=== PATIENT | male | born 1990 | race Caucasian/White ===

== ENCOUNTER 2022-03-26 01:38 | Emergency (ER) | payer OTHER ==
[~2022-03-26] VITALS: Ht 177.8 cm; Wt 65.8 kg
[2022-03-26] MEDS ORDERED: LIDOCAINE 2%-EPI 1:100,000 20 ML VIAL IJ ONE (03:15)
[2022-03-26] MEDS ORDERED: LIDOCAINE 2%-EPI 1:100,000 20 ML VIAL ONE (03:19)
[2022-03-26] MEDS ORDERED: SULF1TAB48 PO (03:49)
[2022-03-26] MEDS ORDERED: OXYC-128 PO (03:49)
[2022-03-26 03:54] VITALS: BP 129/88
== END 2022-03-26 03:54 | disposition home or self-care (01) ==
LOC: ER 01:55
DX: L02.31 Cutaneous abscess of buttock (principal); L72.3 Sebaceous cyst
CPT/HCPCS: 87070; A4663

== ENCOUNTER 2022-03-29 18:31 | Emergency (ER) | payer OTHER ==
[~2022-03-29] VITALS: Ht 177.8 cm; Wt 65.8 kg
[~2022-03-29 18:31] MED LIST: OXYC-128 PO; SULF1TAB48 PO
--- NOTE | 2022-03-29 21:17 | NUR ---
Patient discharged to home in stable condition. Written and verbal after care instructions given. Patient verbalizes understanding of instructions. Stressed follow up or return to ER for worsening s/s.
== END 2022-03-29 21:30 | disposition home or self-care (01) ==
LOC: ER 18:31
DX: Z48.01 Encounter for change or removal of surgical wound dressing (principal); L02.31 Cutaneous abscess of buttock
CPT/HCPCS: A4663